=== PATIENT | female | born 1950 | race Two or more races ===

== ENCOUNTER 2021-07-25 13:39 | Inpatient (IN) | payer OTHER, MEDICAID ==
[~2021-07-25] VITALS: Ht 167.6 cm; Wt 68.3 kg
[2021-07-25] MEDS ORDERED: ONDANSETRON HCL 4 MG/2 ML VIAL IV ONE (14:30)
[2021-07-25] MEDS ORDERED: SODIUM CHLORIDE 0.9% 1,000 ML IVB ONE (14:30)
[2021-07-25 14:57] LABS: Basophils # (auto) 0 10 ^3/uL (0-0.2); Basophils % (auto) 0.8 % (0.0-2.0); Eosinophils # (auto) 0 10 ^3/uL (0-0.8); Hematocrit 40.3 % (36.0-46.0); Hemoglobin 13.8 g/dL (12.2-16.2); Lymphocytes # (auto) 0.5 10 ^3/uL (0.4-5.4); Lymphocytes % (auto) 11.2 % (10.0-50.0); Mean Corpuscular Hemoglobin 32.3 pg (28.0-32.0); Mean Corpuscular Hgb Conc. 34.2 g/dL (32.0-36.0); Mean Corpuscular Volume 94.4 fL (80.0-100.0); Monocytes # (auto) 0.3 10 ^3/uL (0-1.3); Monocytes % (auto) 6.8 % (0.0-12.0); Neutrophils # (auto) 3.9 10 ^3/uL (1.6-8.6); Neutrophils % (auto) 81.2 % (37.0-80.0); Nucleated Red Blood Cells % 0.1 %; Red Blood Cells 4.27 10^6/uL (4.0-5.20); White Blood Cell 4.8 10^3/uL (4.4-10.8)
[2021-07-25 15:10] LABS: Albumin 3.5 g/dL (3.4-5.0); Calcium 8.5 mg/dL (8.5-10.1); Potassium 3.8 mmol/L (3.5-5.1)
[2021-07-25 15:13] LABS: BUN/Creatinine Ratio 19.3; Bilirubin, Total 0.4 mg/dL (0.2-1.0); CRP High Sensitivity 0.64 mg/dL (< 0.3); Total Protein 7.7 g/dL (6.4-8.2)
[2021-07-25] MEDS ORDERED: ACETAMINOPHEN 325 MG TAB PO ONE (15:15)
[2021-07-25 15:19] LABS: Urine Bacteria NONE SEEN /hpf (None Seen); Urine Blood Negative /uL (Negative); Urine Mucus FEW (None Seen); Urine Specific Gravity 1.026 (1.001-1.035); Urine WBC 20 /hpf (0 - 5)
[2021-07-25] MEDS ORDERED: ASCORBIC ACID 500 MG TAB PO ONE (16:15)
[2021-07-25] MEDS ORDERED: CHOLECALCIFEROL (VITD3) 2,000 UNIT CAP/TAB PO ONE (16:15)
[2021-07-25] MEDS ORDERED: cefTRIAXone 1GM/50ML D5W 50 ML IV ONE (16:15)
[2021-07-25] MEDS ORDERED: ZINC SULFATE 220mg CAP or TAB PO ONE (16:15)
[2021-07-25] MEDS ORDERED: NITROGLYCERIN 0.4 MG SL TAB SL PRN ×2 (19:15→20:45)
[2021-07-25] MEDS ORDERED: MORPHINE SULFATE INJECTION 2 MG/ML SYRG IV PRN ×3 (19:15→20:45)
[2021-07-25] MEDS: SODIUM CHLORIDE 0.9% 1,000 ML IV SCH (20:45)
[2021-07-25] MEDS ORDERED: HYDROcodone-ACET 5/325MG TAB PO PRN (20:45)
[2021-07-25] MEDS ORDERED: LORazepam 0.5 MG TAB PO PRN (20:45)
[2021-07-25] MEDS ORDERED: ACETAMINOPHEN 325 MG TAB PO PRN (20:45)
[2021-07-25] MEDS ORDERED: ALBUTEROL SULF HFA 90MCG INH 200DOSE IN PRN (20:45)
[2021-07-25] MEDS ORDERED: ONDANSETRON HCL 4 MG/2 ML VIAL IV PRN (20:45)
[2021-07-25] MEDS ORDERED: DOCUSATE SOD 100 MG CAP PO PRN (20:45)
[2021-07-25] MEDS ORDERED: ALUM & MAG HYDROX-SIMETH LIQ(MAALOX) 30 ML PO PRN (20:45)
[2021-07-25] MEDS ORDERED: ACETAMINOPHEN 500 MG TAB PO PRN (20:45)
[2021-07-25] MEDS ORDERED: metroNIDAZOLE 500MG/100ML 100 ML IV ONE (20:45)
[2021-07-25 21:29] LABS: Basophils # (auto) 0 10 ^3/uL (0-0.2); Basophils % (auto) 0.2 % (0.0-2.0); Eosinophils # (auto) 0 10 ^3/uL (0-0.8); Hematocrit 41.5 % (36.0-46.0); Hemoglobin 14.1 g/dL (12.2-16.2); Lymphocytes # (auto) 1.1 10 ^3/uL (0.4-5.4); Lymphocytes % (auto) 25.8 % (10.0-50.0); Mean Corpuscular Hemoglobin 32.1 pg (28.0-32.0); Mean Corpuscular Volume 94.5 fL (80.0-100.0); Monocytes # (auto) 0.4 10 ^3/uL (0-1.3); Monocytes % (auto) 9.3 % (0.0-12.0); Neutrophils # (auto) 2.7 10 ^3/uL (1.6-8.6); Neutrophils % (auto) 64.7 % (37.0-80.0); Nucleated Red Blood Cells % 0.2 %; Red Blood Cells 4.39 10^6/uL (4.0-5.20); Red Cell Distribution Width 12.9 % (11.8-14.3); White Blood Cell 4.2 10^3/uL (4.4-10.8)
[2021-07-25 21:49] LABS: Anion Gap 5 (5-15); Blood Urea Nitrogen 14 mg/dL (7-18); Calcium 8.8 mg/dL (8.5-10.1); Carbon Dioxide 26 mmol/L (21-32); Chloride 102 mmol/L (98-107); Glucose 104 mg/dL (74-106); Magnesium 2.4 mg/dL (1.6-2.6); Potassium 3.7 mmol/L (3.5-5.1); Sodium 133 mmol/L (136-145)
[2021-07-25] MEDS: BUDESONIDE (INHALATION) 180 MCG IH IN SCH (21:53)
[2021-07-25 22:01] LABS: Alanine Aminotransferase 36 U/L (13-56); Alkaline Phosphatase 85 U/L (45-117); Aspartate Aminotransferase 34 U/L (15-37); BUN/Creatinine Ratio 16.5; Bilirubin, Total 0.4 mg/dL (0.2-1.0); CRP High Sensitivity 0.76 mg/dL (< 0.3); Cholesterol 131 mg/dL (< 200); GFR African American 84 mL/min; GFR Non-African American 70 mL/min; HDL Cholesterol 32 mg/dL (40-59); LDL Cholesterol 89 mg/dL (< 100); Total Protein 8.3 g/dL (6.4-8.2); Triglycerides 86 mg/dL (< 150)
[2021-07-25] MEDS: FAMOTIDINE (10MG/ML) 2ML VL IV SCH (22:13)
[2021-07-25] MEDS: ATORVASTATIN 20 MG TAB PO SCH (22:13)
[2021-07-25] MEDS: ENOXAPARIN SOD 40 MG/0.4 ML SYRINGE SC SCH (22:14)
[2021-07-25 22:18] LABS: Thyroid Stimulating Hormone 1.39 uIU/mL (0.358-3.74)
[2021-07-25 22:37] VITALS: BP 147/85
[2021-07-26] MEDS: SODIUM CHLORIDE 0.9% 1,000 ML IV SCH
[2021-07-26 00:12] LABS: Amphetamine Screen, Urine NEGATIVE (NEGATIVE); Barbiturate Scree,Urine NEGATIVE (NEGATIVE); Benzodiazephine Screen, Urine NEGATIVE (NEGATIVE); Cannabinoid Screen, Urine NEGATIVE (NEGATIVE); Cocaine Screen, Urine NEGATIVE (NEGATIVE); Opiate Scree,Urine NEGATIVE (NEGATIVE); Phencyclidine Screen, Urine NEGATIVE (NEGATIVE)
[2021-07-26 00:48] VITALS: BP 150/69
[2021-07-26 05:00] VITALS: BP 123/62
[2021-07-26] MEDS: metroNIDAZOLE 500MG/100ML 100 ML IV SCH ×3 (06:12→21:38)
[2021-07-26 06:58] LABS: INR 1.03 (0.9-1.15); Partial Thromboplastin Time 30.5 sec (23.6-33.0)
[2021-07-26 07:03] LABS: Alanine Aminotransferase 28 U/L (13-56); Chloride 105 mmol/L (98-107); Potassium 3.7 mmol/L (3.5-5.1); Sodium 135 mmol/L (136-145)
[2021-07-26] MEDS: BUDESONIDE (INHALATION) 180 MCG IH IN SCH ×2 (07:12→20:37)
[2021-07-26 07:14] LABS: Alkaline Phosphatase 66 U/L (45-117); Anion Gap 6 (5-15); Aspartate Aminotransferase 29 U/L (15-37); BUN/Creatinine Ratio 14.5; Bilirubin, Total 0.3 mg/dL (0.2-1.0); Blood Urea Nitrogen 11 mg/dL (7-18); Calcium 7.9 mg/dL (8.5-10.1); Carbon Dioxide 24 mmol/L (21-32); GFR African American 96 mL/min; GFR Non-African American 79 mL/min; Glucose 89 mg/dL (74-106); Magnesium 2.2 mg/dL (1.6-2.6); Phosphorus 2.2 mg/dL (2.5-4.90); Total Protein 6.5 g/dL (6.4-8.2)
[2021-07-26 07:18] LABS: Thyroid Stimulating Hormone 1.03 uIU/mL (0.358-3.74)
[2021-07-26 07:21] LABS: Basophils # (auto) 0 10 ^3/uL (0-0.2); Basophils % (auto) 0.2 % (0.0-2.0); Eosinophils # (auto) 0 10 ^3/uL (0-0.8); Hematocrit 36.2 % (36.0-46.0); Hemoglobin 12.5 g/dL (12.2-16.2); Lymphocytes # (auto) 1.2 10 ^3/uL (0.4-5.4); Lymphocytes % (auto) 30.6 % (10.0-50.0); Mean Corpuscular Hemoglobin 32.6 pg (28.0-32.0); Mean Corpuscular Hgb Conc. 34.7 g/dL (32.0-36.0); Mean Corpuscular Volume 94.1 fL (80.0-100.0); Monocytes # (auto) 0.3 10 ^3/uL (0-1.3); Monocytes % (auto) 7.6 % (0.0-12.0); Neutrophils # (auto) 2.4 10 ^3/uL (1.6-8.6); Neutrophils % (auto) 61.6 % (37.0-80.0); Nucleated Red Blood Cells % 0.4 %; Red Blood Cells 3.85 10^6/uL (4.0-5.20); White Blood Cell 3.9 10^3/uL (4.4-10.8)
[2021-07-26 09:00] VITALS: BP 113/53
[2021-07-26] MEDS: ASPirin 81 mg TAB PO SCH (10:00)
[2021-07-26] MEDS: CHOLECALCIFEROL (VITD3) 2,000 UNIT CAP/TAB PO SCH (10:00)
[2021-07-26] MEDS: ASCORBIC ACID 1,000 MG TAB PO SCH (10:00)
[2021-07-26] MEDS: cefTRIAXone 1GM/50ML D5W 50 ML IV SCH (10:00)
[2021-07-26] MEDS: FAMOTIDINE (10MG/ML) 2ML VL IV SCH (10:00)
[2021-07-26] MEDS: ZINC SULFATE 220mg CAP or TAB PO SCH (10:01)
[2021-07-26] MEDS: ENOXAPARIN SOD 40 MG/0.4 ML SYRINGE SC SCH ×2 (10:01→21:44)
[2021-07-26 13:00] VITALS: BP 91/51
[2021-07-26 17:00] VITALS: BP 141/65
[2021-07-26] MEDS: ALBUTEROL SULF HFA 90MCG INH 200DOSE IN PRN (20:38)
[2021-07-26] MEDS: ATORVASTATIN 20 MG TAB PO SCH (21:39)
[2021-07-26 22:00] VITALS: BP 116/58
[2021-07-27 05:00] VITALS: BP 112/68
[2021-07-27] MEDS: metroNIDAZOLE 500MG/100ML 100 ML IV SCH ×2 (06:16→14:28)
[2021-07-27 09:00] VITALS: BP 126/69
[2021-07-27] MEDS: ALBUTEROL SULF HFA 90MCG INH 200DOSE IN PRN (09:09)
[2021-07-27] MEDS: BUDESONIDE (INHALATION) 180 MCG IH IN SCH (09:10)
[2021-07-27] MEDS: ENOXAPARIN SOD 40 MG/0.4 ML SYRINGE SC SCH (09:52)
[2021-07-27] MEDS: ASPirin 81 mg TAB PO SCH (09:52)
[2021-07-27] MEDS: ZINC SULFATE 220mg CAP or TAB PO SCH (09:52)
[2021-07-27] MEDS: cefTRIAXone 1GM/50ML D5W 50 ML IV SCH (09:52)
[2021-07-27] MEDS: CHOLECALCIFEROL (VITD3) 2,000 UNIT CAP/TAB PO SCH (09:52)
[2021-07-27] MEDS: ASCORBIC ACID 1,000 MG TAB PO SCH (09:52)
[2021-07-27] MEDS ORDERED: FAMOTIDINE (10MG/ML) 2ML VL IV SCH (10:00)
[2021-07-27 13:00] VITALS: BP 98/54
[2021-07-27] MEDS ORDERED: METR500T PO (13:56)
[2021-07-27 17:00] VITALS: BP 109/54
== END 2021-07-27 18:30 | disposition home or self-care (01) | DRG 177 ==
LOC: ER 13:39 → TELE 19:10 → TELE-EAST 23:00
PROVIDERS: ADMIT Hospitalist; ATTEND Internal Medicine
DX: U07.1 COVID-19 (principal); J12.82 Pneumonia due to coronavirus disease 2019; K83.1 Obstruction of bile duct; N39.0 Urinary tract infection, site not specified; R19.7 Diarrhea, unspecified; E66.9 Obesity, unspecified; D72.829 Elevated white blood cell count, unspecified; N28.1 Cyst of kidney, acquired; R73.9 Hyperglycemia, unspecified; E78.5 Hyperlipidemia, unspecified; K57.30 Diverticulosis of large intestine without perforation or abscess without bleeding; N28.89 Other specified disorders of kidney and ureter; Z82.49 Family history of ischemic heart disease and other diseases of the circulatory system; Z88.2 Allergy status to sulfonamides; Z83.3 Family history of diabetes mellitus; Z87.442 Personal history of urinary calculi; Z90.49 Acquired absence of other specified parts of digestive tract; Z68.24 Body mass index [BMI] 24.0-24.9, adult
CPT/HCPCS: 36415; 71045; 74176; 76705; 76775; 80053; 80061; 80307; 81001; 82150; 82306; 82728; 83036; 83605; 83615; 83690; 83735; 83880; 84100; 84443; 84484; 85025; 85379; 85610; 85730; 86141; 87040; 87086; 87426; 87493; 87804; 93005; 94640; 96361; 96365; 96367; 96375; G0378; J0696; J2405; J3490

== ENCOUNTER 2022-05-04 10:56 | Emergency (ER) | payer OTHER, MEDICAID ==
[~2022-05-04] VITALS: Ht 157.5 cm; Wt 61.7 kg
[2022-05-04] MEDS ORDERED: KETOROLAC TROMETH 30 MG/ML 1ML VIAL IV ONE (11:45)
[2022-05-04] MEDS ORDERED: SODIUM CHLORIDE 0.9% 1,000 ML IV ONE (11:45)
[2022-05-04 12:27] LABS: Basophils # (auto) 0 10 ^3/uL (0-0.2); Basophils % (auto) 0.5 % (0.0-2.0); Eosinophils # (auto) 0.1 10 ^3/uL (0-0.8); Eosinophils % (auto) 1.6 % (0.0-7.0); Hematocrit 40.9 % (36.0-46.0); Hemoglobin 13.3 g/dL (12.2-16.2); Lymphocytes # (auto) 1.6 10 ^3/uL (0.4-5.4); Lymphocytes % (auto) 22.8 % (10.0-50.0); Mean Corpuscular Hemoglobin 30.7 pg (28.0-32.0); Mean Corpuscular Hgb Conc. 32.4 g/dL (32.0-36.0); Mean Corpuscular Volume 94.6 fL (80.0-100.0); Monocytes # (auto) 0.6 10 ^3/uL (0-1.3); Monocytes % (auto) 8.4 % (0.0-12.0); Neutrophils # (auto) 4.8 10 ^3/uL (1.6-8.6); Neutrophils % (auto) 66.7 % (37.0-80.0); Red Blood Cells 4.32 10^6/uL (4.0-5.20); Red Cell Distribution Width 12.9 % (11.8-14.3); White Blood Cell 7.1 10^3/uL (4.4-10.8)
[2022-05-04 12:51] LABS: Albumin 3.8 g/dL (3.4-5.0); Calcium 9.1 mg/dL (8.5-10.1); Magnesium 2.7 mg/dL (1.6-2.6); Potassium 4.2 mmol/L (3.5-5.1)
[2022-05-04 12:54] LABS: BUN/Creatinine Ratio 19.3; Bilirubin, Total 0.5 mg/dL (0.2-1.0); Total Protein 7.8 g/dL (6.4-8.2)
[2022-05-04] MEDS ORDERED: CYCL-837 PO (13:40)
[2022-05-04] MEDS ORDERED: DICL50TA2 PO (13:40)
[2022-05-04] MEDS ORDERED: TRAM50TA2 PO (13:40)
[2022-05-04 14:06] VITALS: BP 120/69
[2022-05-04] MEDS ORDERED: KETOROLAC TROMETH 60MG/2ML VIAL IM ONE (14:15)
== END 2022-05-04 14:28 | disposition home or self-care (01) ==
LOC: ER 10:56
DX: M16.11 Unilateral primary osteoarthritis, right hip (principal); M79.604 Pain in right leg; Z79.899 Other long term (current) drug therapy; Z88.2 Allergy status to sulfonamides
CPT/HCPCS: 36415; 73700; 80053; 83735; 85025; 96372; 99284; J1885